=== PATIENT | female | born 1990 | race Caucasian/White ===

== ENCOUNTER → 2017-05-15 17:08 | Outpatient (CLI) | payer MEDICAID, SELFPAY | PROVIDERS: Visit Provider Obstetrics & Gynecology | DX: R30.0 Dysuria (principal) | CPT/HCPCS: 87086; 87088 ==

== ENCOUNTER 2021-04-13 17:03 | Outpatient (CLI) | payer MEDICAID, SELFPAY | END 2021-04-13 23:59 | disposition short-term general hospital (02) | PROVIDERS: PCP Nurse Practitioner Family; Visit Provider Obstetrics & Gynecology | DX: R31.9 Hematuria, unspecified (principal) | CPT/HCPCS: 87086; 87088 ==

== ENCOUNTER 2021-04-20 16:23 | Outpatient (CLI) | payer MEDICAID, SELFPAY ==
--- NOTE | 2021-04-20 16:26 | US_ITS ---
STUDY: ULTRASOUND OF THE FEMALE PELVIS - COMPLETE REASON FOR EXAM: Female, 31 years old. pelvic pain TECHNIQUE: Endovaginal. Transvaginal US was obtained to better visualized the ovaries. COMPARISON: None. FINDINGS: The uterus is anteverted and is in a midline position. The uterus measures 10.5 x 4.1 cm. There is a Nabothian cyst of the cervix. The endometrium measures 4.8 mm in thickness, and is hyperechoic. There is no demonstrated endometrial mass. There is no demonstrated myometrial mass. I.U.D. - The patient does not have an I.U.D. The right ovary is visualized. The right ovary measures 2.2 x 2.3 cm. There is no right ovarian cyst or ovarian mass. There is no visualized right adnexal mass or complex lesion. There is normal arterial and normal venous vascularity. The left ovary is visualized. The left ovary measures 2.2 x 2.1 cm. There is no left ovarian cyst or ovarian mass. There is no visualized left adnexal mass or complex lesion. There is normal arterial and normal venous vascularity. There is no fluid in the cul-de-sac. Debris within the urinary bladder can suggest urinary tract infraction. The urinary bladder is distended at 375cc. This can suggest urinary retention. US/Transvaginal Non- IMPRESSION: There is a Nabothian cyst of the cervix. Debris within the urinary bladder can suggest urinary tract infraction. The urinary bladder is distended. This can suggest urinary retention. Electronically Signed: Crow Cobian MD at 19:36 EST ,
--- NOTE | 2021-04-20 16:26 | US_ITS ---
STUDY: ULTRASOUND OF THE FEMALE PELVIS - COMPLETE REASON FOR EXAM: Female, 31 years old. pelvic pain TECHNIQUE: Endovaginal. Transvaginal US was obtained to better visualized the ovaries. COMPARISON: None. FINDINGS: The uterus is anteverted and is in a midline position. The uterus measures 10.5 x 4.1 cm. There is a Nabothian cyst of the cervix. The endometrium measures 4.8 mm in thickness, and is hyperechoic. There is no demonstrated endometrial mass. There is no demonstrated myometrial mass. I.U.D. - The patient does not have an I.U.D. The right ovary is visualized. The right ovary measures 2.2 x 2.3 cm. There is no right ovarian cyst or ovarian mass. There is no visualized right adnexal mass or complex lesion. There is normal arterial and normal venous vascularity. The left ovary is visualized. The left ovary measures 2.2 x 2.1 cm. There is no left ovarian cyst or ovarian mass. There is no visualized left adnexal mass or complex lesion. There is normal arterial and normal venous vascularity. There is no fluid in the cul-de-sac. Debris within the urinary bladder can suggest urinary tract infraction. The urinary bladder is distended at 375cc. This can suggest urinary retention. US/Pelvic (Non ) IMPRESSION: There is a Nabothian cyst of the cervix. Debris within the urinary bladder can suggest urinary tract infraction. The urinary bladder is distended. This can suggest urinary retention. Electronically Signed: Crow Cobian MD at 19:36 EST ,
--- NOTE | 2021-04-20 17:12 | RAD_ITS ---
EXAM: XR ABDOMEN, 2 VIEWS CLINICAL INDICATION: ABD PAIN Technologist Notes PT FEELS LIKE SHE HAS KIDNEY STONES. HX OF KIDNEY STONES. ABDOMEN PAIN. TECHNIQUE: Frontal view of the abdomen/pelvis with upright view of the abdomen. This report was created using [employer] report generation technology. COMPARISON: None. FINDINGS: LOWER THORAX: No acute pathology. INTRAPERITONEAL SPACE: No free air. GASTROINTESTINAL TRACT: Stool throughout the colon. Non-obstructive. No bowel or stomach distention. ORGANS: There are multiple metallic clips in the right upper quadrant. This is consistent for a cholecystectomy. No organomegaly. No abnormal calcifications. BONES/JOINTS: No acute pathology. SOFT TISSUES: No acute pathology. RAD/Abd Inc Decub and/or Erect IMPRESSION: Stool throughout the colon. Electronically Signed: Crow Cobian MD at 18:35 EST ,
== END 2021-04-20 23:59 | disposition short-term general hospital (02) ==
LOC: US 16:25
PROVIDERS: PCP Nurse Practitioner Family; Referring Provider Obstetrics & Gynecology; Visit Provider Obstetrics & Gynecology
DX: R10.2 Pelvic and perineal pain (principal)
CPT/HCPCS: 74019; 76830; 76856

== ENCOUNTER → 2024-04-17 | Outpatient (CLI) | payer MEDICAID, SELFPAY ==
--- NOTE | 2024-04-17 08:46 | MRI_ITS ---
STUDY: MRI LUMBAR SPINE WITHOUT CONTRAST REASON FOR EXAM: Female, 34 years old. lumbar radiculopathy TECHNIQUE: Standardized fat and water weighted pulse sequences were obtained in the sagittal and axial planes. COMPARISON: X-rays of the lumbar spine dated March 12, 2024 FINDINGS: No demonstrated marrow edema or fracture or compression deformity. No lytic or blastic/aggressive lesions are seen. No demonstrated evidence of vertebral osteomyelitis or discitis. Predominance of red marrow elements. No aggressive process is present. Normal lumbar lordosis. There is no substantial scoliosis. Normal conus medullaris that terminates at the L1 level. T12-L1: Normal endplates. Normal disc height, hydration and morphology. Normal bilateral facet joints. Normal central canal and bilateral lateral recesses. Normal bilateral intervertebral neural foramina. L1-2: Normal endplates. Mild posterior disc space narrowing with a moderate size right paracentral disc extrusion measuring 8.6 mm in diameter causing right lateral recess stenosis with compression of the exiting nerve root. Normal bilateral facet joints. Normal central canal and left lateral recess. Normal bilateral intervertebral neural foramina. L2-3: Normal endplates. Normal disc height, hydration and morphology. Normal bilateral facet joints. Normal central canal and bilateral lateral recesses. Normal bilateral intervertebral neural foramina. L3-4: Normal endplates. Normal disc height, hydration and morphology. Normal bilateral facet joints. Normal central canal and bilateral lateral recesses. Normal bilateral intervertebral neural foramina. L4-5: Normal endplates. Diffuse disc desiccation with mild posterior disc space narrowing and a slight midline disc protrusion. Normal bilateral facet joints. Normal central canal and bilateral lateral recesses. Normal bilateral intervertebral neural foramina. L5-S1: Normal endplates. Moderate disc space narrowing with diffuse disc bulge/spur complex. Small midline to left paracentral shallow disc protrusion associated with a moderate-sized annular tear of the disc with left lateral recess stenosis and compression of descending nerve root. Normal central canal and lateral recess. Mild facet joint hypertrophy. Normal bilateral intervertebral neural foramina. Normal visualized sacral ala. Normal visualized paraspinous soft tissue structures. MRI/Spine Lumbar (Routine) IMPRESSION: 1. Moderate size right paracentral disc extrusion causing right lateral recess stenosis and compression of the exiting nerve root at L1-L2 Electronically Signed: Kishan Jessica MD at 16:03 EST ,
== END | disposition home or self-care (01) ==
LOC: MRI 08:37
PROVIDERS: PCP Nurse Practitioner Family; Referring Provider Student in an Organized Health Care Education/Training Program; Visit Provider Student in an Organized Health Care Education/Training Program
DX: M54.16 Radiculopathy, lumbar region (principal)
CPT/HCPCS: 72148